=== PATIENT | male | born 1975 | race Caucasian/White ===

== ENCOUNTER 2022-07-09 08:03 | Emergency (ER) | payer OTHER ==
[~2022-07-09] VITALS: Ht 182.9 cm; Wt 79.4 kg
[2022-07-09 08:11] VITALS: BP 184/127
--- NOTE | 2022-07-09 08:16 | NUR ---
47 Y/O MALE BIB SELF C/O CHEST PAIN AND [id number], PER PT HE WAS SEEN IN [place] FOR THE SAME S/S. NOTED COUGHING, DENIES ANY OTHER CARDIAC HISTORY. NKA PMH: DM, ASTHMA
--- NOTE | 2022-07-09 08:17 | NUR ---
DR GARCIA AT BEDSIDE FOR EVAL
[2022-07-09] MEDS ORDERED: ALBUTEROL 0.083% 2.5 MG/3 ML NEBU INH ONE (08:25)
[2022-07-09] MEDS ORDERED: ALBUTEROL SULFATE/IPRATROPIU 3 ML SOL IH ONE (08:25)
--- NOTE | 2022-07-09 08:34 | NUR ---
X-Ray at bedside.
[2022-07-09 08:40] LABS: BASOPHILS # (AUTO) 0.1 K/uL (0.00-0.22); BASOPHILS % (AUTO) 1.2 % (0.0-2.0); EOSINOPHILS # (AUTO) 0.1 K/uL (0-0.4); EOSINOPHILS % (AUTO) 1.2 % (0.0-4.0); HEMATOCRIT 37.3 % (36-52); HEMOGLOBIN 11.9 g/dL (12.0-18.0); LYMPHOCYTES # (AUTO) 1.5 K/uL (2.0-11.5); LYMPHOCYTES % (AUTO) 11.9 % (20.5-51.1); MEAN CORPUSCULAR HEMOGLOBIN 28 pg (27-31); MEAN CORPUSCULAR HGB CONC 32 g/dL (33-37); MEAN CORPUSCULAR VOLUME 87.1 fL (80-94); MONOCYTES # (AUTO) 0.8 K/uL (0.8-1.0); MONOCYTES % (AUTO) 6.4 % (1.7-9.3); NEUTROPHILS # (AUTO) 9.8 K/uL (1.8-7.7); NEUTROPHILS % (AUTO) 79.3 % (42.2-75.2); PLATELET COUNT (AUTO) 382 K/uL (140-450); RED BLOOD CELL COUNT(AUTO) 4.29 MIL/uL (4.20-6.10); RED CELL DISTRIBUTION WIDTH 16.2 % (11.6-13.7); WHITE BLOOD COUNT (AUTO) 12.4 K/uL (4.8-10.8)
[2022-07-09 08:55] LABS: PROTHROMBIN TIME 11.4 secs (10.8-13.4)
[2022-07-09 08:57] LABS: ALBUMIN 2.6 g/dL (3.4-5.0); ANION GAP 13.3 (8-16); CREATININE 1.2 mg/dL (0.6-1.3); POTASSIUM 3.3 mmol/L (3.5-5.1); TOTAL BILIRUBIN 0.6 mg/dL (0.0-1.0)
--- NOTE | 2022-07-09 08:58 | NUR ---
PT REFUSED COVID SWAB
--- NOTE | 2022-07-09 09:07 | NUR ---
RT AT BEDSIDE
--- NOTE | 2022-07-09 09:15 | NUR ---
PT STATES THAT HE IS UNABLE TO BREATHE, ERMD AT BEDSIDE, SPEAKING IN FULL SENTENCES
[2022-07-09] MEDS ORDERED: ALBU0.0912 IH (09:46)
[2022-07-09] MEDS ORDERED: AMOX-1230 PO (09:46)
--- NOTE | 2022-07-09 09:56 | NUR ---
Patient discharged with v/s stable. Written and verbal after care instructions ABOUT ALBUTEROL, SMOKING CESSATION, COPD AND ASPIRATION PNEUMONIA given and explained. Patient alert, oriented and verbalized understanding of instructions. Ambulatory with steady gait. All questions addressed prior to discharge. ID band removed. Patient advised to follow up with PMD. Rx of ALBUTEROL, AMOX-CLAV given. Patient educated on indication of medication including possible reaction and side effects. Opportunity to ask questions provided and answered.
== END 2022-07-09 09:55 | disposition left against medical advice (07) ==
LOC: MED 08:03
DX: J69.0 Pneumonitis due to inhalation of food and vomit (principal); J44.9 Chronic obstructive pulmonary disease, unspecified; F17.200 Nicotine dependence, unspecified, uncomplicated; I10 Essential (primary) hypertension; E11.9 Type 2 diabetes mellitus without complications; Z79.899 Other long term (current) drug therapy; Z71.6 Tobacco abuse counseling
CPT/HCPCS: 36415; 71045; 80053; 83880; 84484; 85025; 85379; 85610; 85730; 93005; 94640; 99291; J7613